=== PATIENT | female | born 1960 | race Caucasian/White ===

== ENCOUNTER 2017-06-23 17:24 | Emergency (ER) | payer OTHER ==
[~2017-06-23] VITALS: Ht 162.6 cm; Wt 62.6 kg
[2017-06-23 17:37] VITALS: Ht 162.6 cm; Wt 62.6 kg
[2017-06-23 18:23] VITALS: BP 110/77
== END 2017-06-23 18:23 | disposition home or self-care (01) ==
LOC: ED 17:24
DX: J20.9 Acute bronchitis, unspecified (principal); I10 Essential (primary) hypertension; E11.9 Type 2 diabetes mellitus without complications; E78.00 Pure hypercholesterolemia, unspecified

== ENCOUNTER 2017-10-21 14:30 | Inpatient (IN) | payer OTHER ==
[~2017-10-21] VITALS: Ht 152.4 cm; Wt 64.6 kg
[2017-10-21 14:39] VITALS: Ht 152.4 cm; Wt 64.6 kg
[2017-10-21 16:38] LABS: BASOPHIL % 0.6 % (0-2); PLATELET COUNT 218 x10^3mcL (130-400); RED CELL DISTRIBUTION WIDTH 14.1 % (11.5-14.5)
[2017-10-21 17:02] LABS: CALCIUM 8.4 mg/dL (8.5-10.1); CARBON DIOXIDE 25.7 mmol/L (21-32); CREATININE SERUM 1.2 mg/dL (0.6-1.0)
[2017-10-21 17:07] LABS: ALBUMIN 3.6 g/dL (3.4-5.0); BILIRUBIN TOTAL 0.2 mg/dL (0.20-1.00); TOTAL PROTEIN, SERUM 7.6 g/dL (6.4-8.2)
[2017-10-21 20:04] LABS: FREE T4 1.04 ng/dL (0.76-1.46); FREE THYROXINE INDEX 2.3 ug/dL (1.4-4.5); T4(THYROXINE) 7.3 ug/dL (4.7-13.3)
[2017-10-21 20:23] LABS: MAGNESIUM 2.3 mg/dL (1.8-2.4)
[2017-10-21 20:29] VITALS: BP 183/94
[2017-10-21 20:42] LABS: CHOLESTEROL/HDL RATIO 2.3
[2017-10-21 21:45] LABS: T3 TOTAL 0.99 ng/mL
[2017-10-21 22:58] VITALS: BP 150/61
[2017-10-22 03:21] LABS: RED BLOOD CELLS 3.33 M/mm3 (4.10-5.10)
[2017-10-22 05:31] VITALS: BP 159/73
[2017-10-22 07:32] LABS: BASOPHIL % 0.4 % (0-2); PLATELET COUNT 217 x10^3mcL (130-400); RED CELL DISTRIBUTION WIDTH 13.5 % (11.5-14.5)
[2017-10-22 07:35] LABS: CALCIUM 8.2 mg/dL (8.5-10.1); CARBON DIOXIDE 23.5 mmol/L (21-32); CHLORIDE SERUM 110 mmol/L (98-107); CREATININE SERUM 0.9 mg/dL (0.6-1.0); GFR1 > 60 mL/min; GLUCOSE SERUM 97 mg/dL (74-106); MAGNESIUM 2.4 mg/dL (1.8-2.4); PHOSPHOROUS 3.9 mg/dL (2.5-4.9); POTASSIUM SERUM 4.3 mmol/L (3.5-5.1); SODIUM SERUM 142 mmol/L (136-145)
[2017-10-22 08:00] LABS: IRON 39 ug/dL (50-170); TOTAL IRON BINDING CAPACITY 285 ug/dL (250-450)
[2017-10-22 08:15] VITALS: BP 143/84
[2017-10-22 08:44] LABS: microscopic required? YES; urine erythrocyte NEGATIVE (NEGATIVE)
[2017-10-22 12:56] VITALS: BP 147/67
[2017-10-22] MEDS ORDERED: GLUCOTROL5 MG PO (13:22)
[2017-10-22] MEDS ORDERED: SIMVASTATIN20 M1 PO (13:23)
[2017-10-22] MEDS ORDERED: HORIZANT300 MG PO (13:25)
[2017-10-22 16:24] VITALS: BP 130/63
[2017-10-22 21:38] VITALS: BP 117/55
[2017-10-23 05:16] VITALS: BP 133/75
[2017-10-23 10:31] VITALS: BP 129/67
[2017-10-23] MEDS ORDERED: LIPI10 PO (12:25)
[2017-10-23] MEDS ORDERED: NIT0.4 SL (12:26)
[2017-10-23] MEDS ORDERED: METOPROLOL TART25 M1 PO (12:26)
[2017-10-23] MEDS ORDERED: ZES5 PO (12:27)
[2017-10-23] MEDS ORDERED: ECO81 PO (12:27)
[2017-10-23] MEDS ORDERED: IMD60 PO (12:29)
[2017-10-23] MEDS ORDERED: ACT15 PO (12:34)
[2017-10-23] MEDS ORDERED: BACTRIM DS1 TAB PO (13:11)
[2017-10-23 15:24] VITALS: BP 114/56
[2017-10-23 15:56] VITALS: BP 114/56
[2017-10-23] MEDS ORDERED: ZESTRIL20 MG PO (17:54)
== END 2017-10-23 19:20 | disposition home or self-care (01) | DRG 203 ==
LOC: ED 14:30 → DU 17:53
PROVIDERS: Emergency Medicine; Internal Medicine
DX: M94.0 Chondrocostal junction syndrome [Tietze] (principal); N17.0 Acute kidney failure with tubular necrosis; E11.51 Type 2 diabetes mellitus with diabetic peripheral angiopathy without gangrene; N39.0 Urinary tract infection, site not specified; I10 Essential (primary) hypertension; E78.00 Pure hypercholesterolemia, unspecified; E78.5 Hyperlipidemia, unspecified; D64.9 Anemia, unspecified; Z68.23 Body mass index [BMI] 23.0-23.9, adult; Z98.49 Cataract extraction status, unspecified eye
CPT/HCPCS: 82962; 83880; 84439; J0696; J1885; J7030; Q0092